=== PATIENT | male | born 1950 | race Caucasian/White ===

== ENCOUNTER 2024-01-03 07:59 | Outpatient (CLI) | payer MEDICARE | END 2024-01-03 08:00 | disposition home or self-care (01) | LOC: CSHCT 07:59 | PROVIDERS: ATTEND Orthopaedic Surgery | DX: M17.11 Unilateral primary osteoarthritis, right knee (principal) ==

== ENCOUNTER 2024-01-05 10:49 | Outpatient (CLI) | payer MEDICARE ==
[2024-01-05] MEDS ORDERED: Iopamidol 300 61% 100 ML VIAL FS ONE (12:32)
== END 2024-01-05 10:50 | disposition home or self-care (01) ==
LOC: CSHCT 10:49
PROVIDERS: ATTEND Orthopaedic Surgery
DX: R91.8 Other nonspecific abnormal finding of lung field (principal); Q85.89 Other phakomatoses, not elsewhere classified; K44.9 Diaphragmatic hernia without obstruction or gangrene
CPT/HCPCS: 71270; Q9967